=== PATIENT | female | born 1985 | race Caucasian/White ===

== ENCOUNTER 2016-10-14 13:49 | Emergency (ER) | payer MEDICARE | END 2016-10-14 16:15 | disposition home or self-care (01) | LOC: ER 13:49 | DX: R11.2 Nausea with vomiting, unspecified (principal); R19.7 Diarrhea, unspecified; E83.42 Hypomagnesemia; M62.838 Other muscle spasm; R10.84 Generalized abdominal pain | CPT/HCPCS: 36415; 96361; 96365; 96375 ==